=== PATIENT | female | born 1985 | race Caucasian/White ===

== ENCOUNTER 2017-09-14 14:45 | Emergency (ER) | payer SELFPAY ==
[2017-09-14 14:51] VITALS: BP 123/71
[2017-09-14 17:57] LABS: APPEARANCE,URINE SLIGHTLY-CLOUDY; BILIRUBIN,URINE NEGATIVE (NEGATIVE); COLOR,URINE YELLOW; GLUCOSE, URINE NEGATIVE (NEGATIVE); KETONES,URINE NEGATIVE (NEGATIVE); LEUKOCYTE ESTERASE,URINE NEGATIVE (NEGATIVE); NITRITE,URINE POSITIVE (NEGATIVE); PROTEIN,URINE NEGATIVE (NEGATIVE); URINE SPECIFIC GRAVITY 1.024; UROBILINOGEN,URINE NEGATIVE mg/dL (<2.0)
--- NOTE | 2017-09-14 19:30 | ER Document Report ---
ED General - General Chief Complaint: Congestion Stated Complaint: CONGESTION Time Seen by Provider: 09/14/17 19:19 Notes: Patient presents with 2 weeks of upper respiratory congestion nonproductive cough with intermittent epistaxis. Patient denies any recent fevers or coughing at night. She has had several bouts of nonbloody nonbilious vomiting but denies any abdominal pain chest pain or diarrhea. TRAVEL OUTSIDE OF THE [place] IN LAST 30 DAYS: No - Related Data Allergies/Adverse Reactions: No Known Allergies Allergy (Unverified 09/14/17 14:45) Past Medical History - Social History Smoking Status: Current Every Day Smoker Chew tobacco use (# tins/day): No Frequency of alcohol use: None Drug Abuse: Marijuana Family History: Reviewed & Not Pertinent Patient has suicidal ideation: No Patient has homicidal ideation: No Pulmonary Medical History: Reports: Hx Asthma Renal/ Medical History: Denies: Hx Peritoneal Dialysis Past Surgical History: Reports: Hx Appendectomy, Hx Section - x3, Hx Cholecystectomy Review of Systems - Review of Systems Constitutional: No symptoms reported EENT: See HPI, Nose congestion, Nose discharge, Sinus pressure, Sinus discharge Cardiovascular: No symptoms reported Respiratory: No symptoms reported Gastrointestinal: Vomiting Genitourinary: No symptoms reported Female Genitourinary: No symptoms reported Musculoskeletal: No symptoms reported Skin: No symptoms reported Hematologic/Lymphatic: No symptoms reported Neurological/Psychological: No symptoms reported Physical Exam - Vital signs Vitals: Temp Pulse BP Pulse Ox 98.4 F 97 123/71 94 09/14/17 14:49 09/14/17 14:49 09/14/17 14:49 09/14/17 14:49 - General General appearance: Appears well In distress: None - HEENT Head: Normocephalic, Atraumatic Eyes: Normal Pupils: PERRL Pharynx: Normal - Respiratory Respiratory status: No respiratory distress Breath sounds: Wheezing, Other - mild upper wheezing, no rales - Cardiovascular Rhythm: Regular Heart sounds: Normal auscultation Murmur: No - Abdominal Inspection: Normal Distension: No distension Bowel sounds: Normal Tenderness: Nontender Organomegaly: No organomegaly Course - Re-evaluation Re-evalutation: 09/14/17 19:31 Patient well-appearing with 2 weeks of symptoms will provide 5 day steroid Dosepak as well as fluticasone and azelastine - Vital Signs Vital signs: Temp Pulse Resp BP Pulse Ox 98.4 F 97 123/71 94 09/14/17 14:49 09/14/17 14:49 09/14/17 14:49 09/14/17 14:49 - Laboratory Laboratory results interpreted by me: 09/14/17 17:25 Urine Nitrite POSITIVE H Discharge - Discharge Clinical Impression: Upper respiratory infection Qualifiers: URI type: unspecified URI Qualified Code(s): J06.9 - Acute upper respiratory infection, unspecified Condition: Good Disposition: HOME, SELF-CARE Additional Instructions: Please take medications as directed and follow-up with her primary care physician or emergency department if symptoms are worsening or not getting better in the next 2-3 days Prescriptions: Azelastine HCl 205.5 mcg NS BID #1 bottle Fluticasone Propionate [Flonase Allergy Relief] 9.9 ml NS BID #1 bottle Prednisone 40 mg PO DAILY #10 tablet Forms: Return to Work
== END 2017-09-14 19:45 | disposition home or self-care (01) ==
LOC: EDSEX → ER 14:45
DX: J06.9 Acute upper respiratory infection, unspecified (principal); R09.81 Nasal congestion; R05 Cough; R04.0 Epistaxis; F17.200 Nicotine dependence, unspecified, uncomplicated
CPT/HCPCS: 81001; 99283

== ENCOUNTER 2018-04-23 14:57 | Emergency (ER) | payer SELFPAY ==
[2018-04-23 15:08] VITALS: BP 116/62
[2018-04-23] MEDS ORDERED: IBUPROFEN 800 MG TABLET PO ONE (15:49)
--- NOTE | 2018-04-23 15:51 | ER Document Report ---
ED Extremity Problem, Lower - General Chief Complaint: Foot Injury Stated Complaint: FOOT AND ANKLE PAIN Time Seen by Provider: 04/23/18 15:22 Mode of Arrival: Ambulatory Information source: Patient Notes: 32-year-old female presents to ED for complaint of left foot pain. She states she dropped a chair on her left foot on Wednesday. She states she has been walking and working but the foot is swollen and bruised. She states it was becoming more painful to walk supposed her bowels told her she needed to get that checked out. Patient is alert and oriented respirations regular and unlabored speaking in full sentences and walks with a even steady gait. She does have a small bruise and swelling to the lateral aspect of the top of her foot. TRAVEL OUTSIDE OF THE [place] IN LAST 30 DAYS: No - HPI Patient complains to provider of: Injury, Pain, Swelling Location: Ankle, Foot - Left Occurred: Other - And he Where: Work Onset/Duration: Persistent Quality of pain: Achy, Sharp Severity: Moderate Pain Level: 4 Context: Other - Dropped a chair on her foot Recent injury: Yes Associated symptoms: Painful ambulation Exacerbated by: Hanging down, Movement, Walking Relieved by: Elevation, Ice, Rest - Related Data Allergies/Adverse Reactions: No Known Allergies Allergy (Verified 04/23/18 15:05) Past Medical History - General Information source: Patient - Social History Smoking Status: Current Every Day Smoker Cigarette use (# per day): Yes - Half a pack a day Chew tobacco use (# tins/day): No Smoking Education Provided: Yes - 4 minutes Frequency of alcohol use: Rare Drug Abuse: Marijuana Occupation: Supervisor [employer] Lives with: Family Family History: Reviewed & Not Pertinent Patient has suicidal ideation: No Patient has homicidal ideation: No - Past Medical History Cardiac Medical History: Reports: None Pulmonary Medical History: Reports: Hx Asthma EENT Medical History: Reports: None Neurological Medical History: Reports: None Endocrine Medical History: Reports: None Renal/ Medical History: Reports: None Malignancy Medical History: Reports: None GI Medical History: Reports: None Musculoskeletal Medical History: Reports Hx Musculoskeletal Trauma Skin Medical History: Reports None Psychiatric Medical History: Reports: Hx Depression Traumatic Medical History: Reports: None Infectious Medical History: Reports: None Past Surgical History: Reports: Hx Appendectomy, Hx Section - x3, Hx Cholecystectomy Review of Systems - Review of Systems Constitutional: No symptoms reported EENT: No symptoms reported Cardiovascular: No symptoms reported Respiratory: No symptoms reported Gastrointestinal: No symptoms reported Genitourinary: No symptoms reported Female Genitourinary: No symptoms reported Musculoskeletal: Other - Pain, swelling, and bruising to the left foot and ankle Skin: No symptoms reported Hematologic/Lymphatic: No symptoms reported Neurological/Psychological: No symptoms reported -: Yes All other systems reviewed and negative Physical Exam - Vital signs Vitals: Temp Pulse Resp BP Pulse Ox 98.6 F 98 16 116/62 100 04/23/18 15:07 04/23/18 15:07 04/23/18 15:07 04/23/18 15:07 04/23/18 15:07 Interpretation: Normal - General General appearance: Appears well, Alert - HEENT Head: Normocephalic, Atraumatic Eyes: Normal Pupils: PERRL - Respiratory Respiratory status: No respiratory distress Chest status: Nontender Breath sounds: Normal Chest palpation: Normal - Cardiovascular Rhythm: Regular Heart sounds: Normal auscultation Murmur: No - Abdominal Inspection: Normal Distension: No distension Bowel sounds: Normal Tenderness: Nontender Organomegaly: No organomegaly - Back Back: Normal, Nontender - Extremities General upper extremity: Normal inspection, Nontender, Normal color, Normal ROM , Normal temperature General lower extremity: Normal ROM, Normal temperature, Normal weight bearing. No: Pietro's sign Ankle: Tender, Ecchymosis, Edema. No: Unable to bear weight Foot: Tender, Ecchymosis, Edema, Metatarsal compress. pain, No evidence of FB. No: Tender 5th metatarsal, Unable to bear weight - Neurological Neuro grossly intact: Yes Cognition: Normal Orientation: AAOx4 Humble Coma Scale Eye Opening: Spontaneous Montesano Coma Scale Verbal: Oriented Humble Coma Scale Motor: Obeys Commands Humble Coma Scale Total: 15 Speech: Normal Motor strength normal: LUE, RUE, LLE, RLE Sensory: Normal - Psychological Associated symptoms: Normal affect, Normal mood - Skin Skin Temperature: Warm Skin Moisture: Dry Skin Color: Normal Course - Re-evaluation Re-evalutation: 04/23/18 22:16 Chest x-ray with patient. Patient was given written report of x-ray and instructions for elevation ice ibuprofen and Tylenol. Patient was discharged home after she verbalized understanding of instructions and treatment plan. - Vital Signs Vital signs: Temp Pulse Resp BP Pulse Ox 98.6 F 98 16 116/62 100 04/23/18 15:07 04/23/18 15:07 04/23/18 15:07 04/23/18 15:07 04/23/18 15:07 - Diagnostic Test Radiology reviewed: Image reviewed, Reports reviewed Discharge - Discharge Clinical Impression: Contusion of left foot Qualifiers: Encounter type: initial encounter Qualified Code(s): S90.32XA - Contusion of left foot, initial encounter Condition: Stable Disposition: HOME, SELF-CARE Instructions: Family Physicians / Practices Additional Instructions: CONTUSION: Your injury has resulted in a contusion -- a crushing of the deep tissues. No injury to important structures was detected during the physician's exam. Contusions vary in the amount of pain they cause, and in the length of time required for healing. Typically, the area will become bruised, and will remain painful to touch for two or three weeks. However, most patients are back to working and playing within a few days. After the initial period of rest and cold-packs, your symptoms (together with the doctor's recommendations) will determine how rapidly you can get back to full activity. Usually this means "do what feels okay, but don't do things that hurt." If re-examination was recommended, it's important to follow up as instructed. Call the doctor or return any time if pain increases, if swelling becomes severe, if you develop numbness or weakness in an injured extremity, or if any other alarming symptoms occur. USE OF TYLENOL (ACETAMINOPHEN): Acetaminophen may be taken for pain relief or fever control. It's much safer than aspirin, offering a wider range of "safe" dosages. It is safe during . Some brand names are Tylenol, Panadol, Datril, Anacin 3, Tempra, and Liquiprin. Acetaminophen can be repeated every four hours. The following are maximum recommended dosages: WEIGHT Dose Drops Elixir Chewable( 80mg) (LBS.) drprs=droppers tsp=teaspoon 6 40 mg 0.4 ml (1/2) 6-11 80 mg 0.8 ml (full) tsp 1 tab 12-16 120 mg 1 1/2 drprs 3/4 tsp 1 1/2 tabs 17-23 160 mg 2 drprs 1 tsp 2 tabs 24-30 240 mg 3 drprs 1 1/2 tsp 3 tabs 30-35 320 mg 2 tsp 4 tabs 36-41 360 mg 2 1/4 tsp 4 1/2 tabs 42-47 400 mg 2 1/2 tsp 5 tabs 48-53 480 mg 3 tsp 6 tabs 54-59 520 mg 3 1/4 tsp 6 1/2 tabs 60-64 560 mg 3 1/2 tsp 7 tabs 65-70 600 mg 3 3/4 tsp 7 1/2 tabs 71-76 640 mg 4 tsp 8 tabs 77-82 720 mg 4 1/2 tsp 9 tabs 83-88 800 mg 5 tsp 10 tabs >89 pounds or adults 650 mg to 900 mg Acetaminophen can be repeated every four hours. Maximum dose not to exceed 4000 mg a day. These maximum recommended dosages are slightly higher than the dosages written on the product container, but these dosages are very safe and below the toxic dosage for acetaminophen. ICE & ELEVATION: Apply ice packs frequently against the painful area. Many different schedules are recommended, such as "20 minutes on, 20 minutes off" or "one hour ice, two hours rest." If you need to work, you may need to go longer between ice treatments. You should plan to have the area ice packed AT LEAST one- fourth of the time. The ice should be applied over the wrap, tape, or splint, or over a layer of cloth -- not directly against the skin. Some ice bags have a built-in cloth and can be put directly on the skin. Your injured part should be elevated as much as possible over the next 48 hours. Try to keep the injury above the level of the heart. Avoid use of the injured area. Elevation and rest will decrease the swelling. USE OF [id number]-[id number] IBUPROFEN: Ibuprofen (Advil, Nuprin, Medipren, Motrin IB) is a medication for fever and pain control. In addition, it has anti- inflammatory effects which may be beneficial, especially in the treatment of injuries. It's best to take ibuprofen with food. Persons with ulcer disease or allergy to aspirin should notify their physician of this before taking ibuprofen. Ibuprofen can be given every four to six hours, for a total of four doses daily. Age Pain or fever dose Antiinflammatory dose 6-8 yr 200 mg (1 tab) 200 mg (1 tab) 9-11 yr 200 mg (1 tab) 200-400 mg (1-2 tab) 11-14 yr 200-400 mg (1-2 tab) 400 mg (2 tab) 15-adult 400 mg (2 tab) 600 mg (3 tab) FOLLOW-UP CARE: If you have been referred to a physician for follow-up care, call the physician s office for an appointment as you were instructed or within the next two days. If you experience worsening or a significant change in your symptoms, notify the physician immediately or return to the Emergency Department at any time for re-evaluation. Forms: Return to Work Referrals: DOMINGUEZ BREWER MD [ACTIVE STAFF] - Follow up as needed SHIRA LAKE DPM [ACTIVE STAFF] - Follow up as needed
--- NOTE | 2018-04-23 16:24 | RADIOLOGY REPORT (SQ) ---
EXAM DESCRIPTION: ANKLE LEFT COMPLETE; FOOT LEFT COMPLETE COMPLETED DATE/TIME: 04/23/2018 4:14 pm REASON FOR STUDY: contusion, pain and injury COMPARISON: None. NUMBER OF VIEWS: Three views left ankle. Three views left foot. LIMITATIONS: None. FINDINGS: Ankle: No bone, joint or soft tissue abnormality. Three views left foot: No bone, joint or soft tissue abnormality. OTHER: No other significant finding. IMPRESSION: No radiographic abnormality of the left foot or ankle. TECHNICAL DOCUMENTATION: JOB ID: [id number] Reading location - IP/workstation name: [email or web address]
--- NOTE | 2018-04-23 16:24 | RADIOLOGY REPORT (SQ) ---
EXAM DESCRIPTION: ANKLE LEFT COMPLETE; FOOT LEFT COMPLETE COMPLETED DATE/TIME: 04/23/2018 4:14 pm REASON FOR STUDY: contusion, pain and injury COMPARISON: None. NUMBER OF VIEWS: Three views left ankle. Three views left foot. LIMITATIONS: None. FINDINGS: Ankle: No bone, joint or soft tissue abnormality. Three views left foot: No bone, joint or soft tissue abnormality. OTHER: No other significant finding. IMPRESSION: No radiographic abnormality of the left foot or ankle. TECHNICAL DOCUMENTATION: JOB ID: [id number] Reading location - IP/workstation name: [email or web address]
== END 2018-04-23 17:15 | disposition home or self-care (01) ==
LOC: ER 14:57
DX: S90.32XA Contusion of left foot, initial encounter (principal); W22.8XXA Striking against or struck by other objects, initial encounter
CPT/HCPCS: 99283; 99406

== ENCOUNTER 2018-05-30 18:33 | Emergency (ER) | payer OTHER ==
[2018-05-30] MEDS ORDERED: HYDROCODONE/ACETAMINOPHEN 5-325 MG TABLET PO ONE (19:19)
--- NOTE | 2018-05-30 19:24 | ER Document Report ---
HPI - HPI Patient complains to provider of: Fall Onset: Other - Days ago Onset/Duration: Persistent Quality of pain: Achy Pain Level: 3 Context: Patient states she was at work and slipped on a wet surface falling back. Patient states she attempted to catch herself with her hands. Patient states she initially had bilateral wrist pain right lateral rib pain and right knee pain. Patient states that her right wrist has persisted and giving her pain. Patient denies any difficulty breathing. Patient denies any head injury or loss of consciousness. Associated Symptoms: Other - Bilateral wrist, right rib, right knee pain Exacerbated by: Movement Relieved by: Denies Similar symptoms previously: No Recently seen / treated by doctor: No - ROS ROS below otherwise negative: Yes Systems Reviewed and Negative: Yes All other systems reviewed and negative - NEURO Neurology: DENIES: Headache, Weakness - GASTROINTESTINAL Gastrointestinal: DENIES: Nausea - MUSCULOSKELETAL Musculoskeletal: REPORTS: Extremity pain - Right knee, bilateral wrist Notes: Right lateral rib - DERM Skin Color: Normal Skin Problems: None Past Medical History - General Information source: Patient - Social History Smoking Status: Current Every Day Smoker Smoking Education Provided: Yes Frequency of alcohol use: None Drug Abuse: Marijuana Occupation: Baseball Coach Family History: Reviewed & Not Pertinent Pulmonary Medical History: Reports: Hx Asthma Renal/ Medical History: Denies: Hx Peritoneal Dialysis Musculoskeletal Medical History: Reports Hx Musculoskeletal Trauma Psychiatric Medical History: Reports: Hx Depression Past Surgical History: Reports: Hx Appendectomy, Hx Section - x3, Hx Cholecystectomy Vertical Provider Document - CONSTITUTIONAL Agree With Documented VS: Yes Exam Limitations: No Limitations General Appearance: WD/WN, No Apparent Distress - INFECTION CONTROL TRAVEL OUTSIDE OF THE [place] IN LAST 30 DAYS: No - HEENT HEENT: Atraumatic, Normocephalic - NECK Neck: Normal Inspection, Supple - RESPIRATORY Respiratory: Breath Sounds Normal, No Respiratory Distress. negative: Chest Non -Tender - Right posterior thoracic chest wall tenderness, no crepitus, no subcutaneous emphysema, no ecchymosis - CARDIOVASCULAR Cardiovascular: Regular Rate, Regular Rhythm - GI/ABDOMEN Gastrointestinal: Abdomen Soft, Abdomen Non-Tender, No Organomegaly - BACK Back: Abnormal Inspection - Right posterior costal tenderness near ribs 5 through 9 area - MUSCULOSKELETAL/EXTREMETIES Musculoskeletal/Extremeties: MAEW, FROM, Tender - Right knee tenderness to popliteal area, no joint effusion, no laxity with varus or valgus maneuvers. Right wrist and hand tenderness with ecchymosis to the volar aspect of right wrist, no deformity tenderness increases with range of motion, Edema - Right wrist, Eccymosis - Right wrist - NEURO Level of Consciousness: Awake, Alert, Appropriate Motor/Sensory: No Motor Deficit - DERM Integumentary: Warm, Dry, No Rash Course - Re-evaluation Re-evalutation: 05/30/18 20:35 Patient refused any rib x-rays or knee x-ray. Patient states that her main concern is her wrist and that the pain to the rib and knee area has been gradually improving. - Vital Signs Vital signs: Temp Pulse Resp BP Pulse Ox 98.3 F 92 16 122/76 99 05/30/18 18:50 05/30/18 18:50 05/30/18 18:50 05/30/18 18:50 05/30/18 18:50 - Diagnostic Test Radiology reviewed: Image reviewed, Reports reviewed Procedures - Immobilization Right Wrist Pre-Proc Neuro Vasc Exam: Normal Immobilizer type: Cock-up Performed by: PCT Post-Proc Neuro Vasc Exam: Normal Alignment checked and good: Yes Discharge - Discharge Clinical Impression: Rib pain on right side Fall Qualifiers: Encounter type: initial encounter Qualified Code(s): W19.XXXA - Unspecified fall, initial encounter Right wrist sprain Qualifiers: Encounter type: initial encounter Qualified Code(s): S63.501A - Unspecified sprain of right wrist, initial encounter Knee sprain Qualifiers: Encounter type: initial encounter Involved ligament of knee: unspecified ligament Laterality: right Qualified Code(s): S83.91XA - Sprain of unspecified site of right knee, initial encounter Condition: Stable Disposition: HOME, SELF-CARE Instructions: Chest Wall Pain ([facility]), Ice & Elevation ([facility]), Sprained Knee ([facility]) , Wrist Sprain ([facility]), Temporary Splint ([facility]) Additional Instructions: Return immediately for any new or worsening symptoms Followup with your primary care provider, call tomorrow to make a followup appointment Prescriptions: Naproxen [Naprosyn 250 Nmg Tablet] 1 tab PO BID #14 tablet Forms: Return to Work Referrals: [facility] [Provider Group] - Follow up as needed
--- NOTE | 2018-05-30 20:39 | RADIOLOGY REPORT (SQ) ---
EXAM DESCRIPTION: HAND RIGHT 3 VIEWS COMPLETED DATE/TIME: 05/30/2018 8:20 pm REASON FOR STUDY: fall, r hand/wrist pain COMPARISON: None. EXAM PARAMETERS: NUMBER OF VIEWS: Three views. TECHNIQUE: AP, lateral and oblique radiographic images acquired of the right hand. LIMITATIONS: None. FINDINGS: MINERALIZATION: Normal. BONES: No acute fracture or dislocation. No worrisome bone lesions. JOINTS: No effusions. SOFT TISSUES: No soft tissue swelling. No foreign body. OTHER: No other significant finding. IMPRESSION: NEGATIVE STUDY OF THE RIGHT HAND. NO RADIOGRAPHIC EVIDENCE OF ACUTE INJURY. TECHNICAL DOCUMENTATION: JOB ID: [id number] [employer]- All Rights Reserved Reading location - IP/workstation name: [email or web address]
[2018-05-30] MEDS ORDERED: HYDROCODONE/ACETAMINOPHEN 5-325 MG (6 TAB/ER DISP) PO PRN (20:46)
[2018-05-30 21:00] VITALS: BP 118/69
== END 2018-05-30 21:05 | disposition home or self-care (01) ==
LOC: ER 18:33
DX: S63.501A Unspecified sprain of right wrist, initial encounter (principal); S83.91XA Sprain of unspecified site of right knee, initial encounter; R07.81 Pleurodynia; M25.531 Pain in right wrist; M25.532 Pain in left wrist; M25.561 Pain in right knee; W01.0XXA Fall on same level from slipping, tripping and stumbling without subsequent striking against object, initial encounter; Y99.0 Civilian activity done for income or pay; F17.200 Nicotine dependence, unspecified, uncomplicated; J45.909 Unspecified asthma, uncomplicated
CPT/HCPCS: 99283; 73130; L3908

== ENCOUNTER 2018-10-06 10:20 | Emergency (ER) | payer SELFPAY ==
[2018-10-06] MEDS ORDERED: NORMAL SALINE 1000 ML 1,000 ML IV ONE (10:40)
[2018-10-06] MEDS ORDERED: HALOPERIDOL LACTATE INJ 5 MG/1 ML VIAL IV ONE (10:43)
[2018-10-06] MEDS ORDERED: DIPHENHYDRAMINE HCL 50 MG/ML VIAL IV ONE (10:43)
--- NOTE | 2018-10-06 10:45 | EKG REPORT ---
SEVERITY:- NORMAL ECG - SINUS RHYTHM : Confirmed by: Terra Wilks MD 06-Oct-2018 10:44:50
[2018-10-06 10:53] LABS: HEMATOCRIT 43.2 % (36.0-47.0); HEMOGLOBIN 14.9 g/dL (12.0-15.5); MEAN CORPUSCULAR HEMOGLOBIN 29.6 pg (27.0-33.4); MEAN CORPUSCULAR HGB CONC 34.5 g/dL (32.0-36.0); MEAN CORPUSCULAR VOLUME 86 fl (80-97); PLATELET COUNT 311 10^3/uL (150-450); RED BLOOD COUNT 5.04 10^6/uL (3.72-5.28); RED CELL DISTRIBUTION WIDTH 13.2 % (11.5-14.0); WHITE BLOOD COUNT 8.6 10^3/uL (4.0-10.5)
[2018-10-06 11:12] LABS: ALANINE AMINOTRANSFERASE 22 U/L (9-52); ALBUMIN 4.8 g/dL (3.5-5.0); ALKALINE PHOSPHATASE 89 U/L (38-126); ANION GAP 11 (5-19); ASPARTATE AMINO TRANSFERASE 18 U/L (14-36); BILIRUBIN,DIRECT 0.3 mg/dL (0.0-0.4); BILIRUBIN,TOTAL 0.4 mg/dL (0.2-1.3); BLOOD UREA NITROGEN 14 mg/dL (7-20); CALCIUM 10.2 mg/dL (8.4-10.2); CARBON DIOXIDE 23 mmol/L (22-30); CHLORIDE 107 mmol/L (98-107); GLUCOSE 93 mg/dL (75-110); POTASSIUM 3.9 mmol/L (3.6-5.0); SODIUM 141.2 mmol/L (137-145); TOTAL PROTEIN 8.1 g/dL (6.3-8.2)
--- NOTE | 2018-10-06 11:15 | RADIOLOGY REPORT (SQ) ---
EXAM DESCRIPTION: CHEST SINGLE VIEW COMPLETED DATE/TIME: 10/06/2018 11:03 am REASON FOR STUDY: sob COMPARISON: None. EXAM PARAMETERS: NUMBER OF VIEWS: One view. TECHNIQUE: Single frontal radiographic view of the chest acquired. RADIATION DOSE: NA LIMITATIONS: None. FINDINGS: LUNGS AND PLEURA: No opacities, masses or pneumothorax. No pleural effusion. MEDIASTINUM AND HILAR STRUCTURES: No masses. Contour normal. HEART AND VASCULAR STRUCTURES: Heart normal in size. Normal vasculature. BONES: No acute findings. HARDWARE: None in the chest. OTHER: No other significant finding. IMPRESSION: NO ACUTE RADIOGRAPHIC FINDING IN THE CHEST. TECHNICAL DOCUMENTATION: JOB ID: [id number] [employer]- All Rights Reserved Reading location - IP/workstation name: [email or web address]
[2018-10-06 11:25] LABS: ABSOLUTE LYMPHOCYTES# (MANUAL) 2.6 10^3/uL (0.5-4.7); ABSOLUTE MONOCYTES # (MANUAL) 0.7 10^3/uL (0.1-1.4); ABSOLUTE NEUTROPHILS# (MANUAL) 5.1 10^3/uL (1.7-8.2); BASOPHILS % (MANUAL) 0 % (0-2); EOSINOPHILS % (MANUAL) 3 % (0-6); LYMPHOCYTES % (MANUAL) 25 % (13-45); MONOCYTES % (MANUAL) 8 % (3-13); SEGMENTED NEUTROPHILS % (MAN) 59 % (42-78); TOTAL CELLS COUNTED 100
[2018-10-06 11:26] LABS: ANISOCYTOSIS SLIGHT; HYPERSEGMENTED NEUTROPHILS PRESENT; PLATELET COMMENT ADEQUATE
[2018-10-06 11:30] LABS: ACETAMINOPHEN < 10 ug/mL (10-30); ALCOHOL < 10 mg/dL (NONE DETECTED); SALICYLATE < 1.0 mg/dL (2.0-20.0)
[2018-10-06 11:53] LABS: VENOUS BLOOD BASE EXCESS -2.4 mmol/L; VENOUS BLOOD HCO3 22.7 mmol/L (20-32); VENOUS BLOOD PCO2 40.7 mmHg (35-63); VENOUS BLOOD PH 7.37 (7.30-7.42)
--- NOTE | 2018-10-06 12:37 | ER Document Report ---
ED General - General Chief Complaint: Overdose Stated Complaint: POSSIBLE OVERDOSE Time Seen by Provider: 10/06/18 10:37 TRAVEL OUTSIDE OF THE [place] IN LAST 30 DAYS: No - HPI Patient complains to provider of: Methamphetamine use difficulty breathing Notes: Patient states approximate 1:00 to 2:00 early this morning due to increased stress in her life she did inject methamphetamines into the left upper arm almost at the coracoid process region. Patient states that she is very sure that she was in the vein patient now is experiencing significant shortness of breath patient is hyperventilating upon my evaluation complaining of numbness in the face and numbness in the hands and feet. Denies any chest pain abdominal pain nausea vomiting fevers chills. Denies any SI or HI patient does have a history of drug abuse in the past - Related Data Allergies/Adverse Reactions: No Known Allergies Allergy (Verified 10/06/18 10:20) Past Medical History - Social History Smoking Status: Current Every Day Smoker Chew tobacco use (# tins/day): No Frequency of alcohol use: Rare Drug Abuse: Marijuana, Methamphetamine Family History: Reviewed & Not Pertinent Patient has suicidal ideation: No Patient has homicidal ideation: No Pulmonary Medical History: Reports: Hx Asthma Renal/ Medical History: Denies: Hx Peritoneal Dialysis Musculoskeletal Medical History: Reports Hx Musculoskeletal Trauma Psychiatric Medical History: Reports: Hx Depression Past Surgical History: Reports: Hx Appendectomy, Hx Section - x3, Hx Cholecystectomy Review of Systems - Review of Systems Constitutional: No symptoms reported EENT: No symptoms reported Cardiovascular: No symptoms reported Respiratory: No symptoms reported Gastrointestinal: No symptoms reported Genitourinary: No symptoms reported Female Genitourinary: No symptoms reported Musculoskeletal: No symptoms reported Skin: No symptoms reported Hematologic/Lymphatic: No symptoms reported Neurological/Psychological: Other - Numbness and tingling difficulty breathing -: Yes All other systems reviewed and negative Physical Exam - Vital signs Vitals: Temp Pulse Resp BP Pulse Ox 97.3 F 73 22 H 120/76 99 10/06/18 10:24 10/06/18 10:24 10/06/18 10:24 10/06/18 10:24 10/06/18 10:24 Interpretation: Tachypneic - General General appearance: Appears well, Alert - HEENT Head: Normocephalic, Atraumatic Eyes: Normal Pupils: PERRL - Respiratory Respiratory status: Tachypnea Chest status: Nontender Breath sounds: Normal Chest palpation: Normal - Cardiovascular Rhythm: Regular Heart sounds: Normal auscultation Murmur: No - Abdominal Inspection: Normal Distension: No distension Bowel sounds: Normal Tenderness: Nontender Organomegaly: No organomegaly - Back Back: Normal, Nontender - Extremities General upper extremity: Normal inspection, Nontender, Normal color, Normal ROM, Normal temperature General lower extremity: Normal inspection, Nontender, Normal color, Normal ROM, Normal temperature, Normal weight bearing. No: Pietro's sign - Neurological Neuro grossly intact: Yes Cognition: Normal Orientation: AAOx4 Vicco Coma Scale Eye Opening: Spontaneous Humble Coma Scale Verbal: Oriented Humble Coma Scale Motor: Obeys Commands Vicco Coma Scale Total: 15 Speech: Normal Motor strength normal: LUE, RUE, LLE, RLE Sensory: Normal - Psychological Associated symptoms: Normal affect, Normal mood - Skin Skin Temperature: Warm Skin Moisture: Dry Skin Color: Normal Course - Re-evaluation Re-evalutation: 10/06/18 14:58 Patient was hyperventilating upon my evaluation of numbness and tingling. Laboratory studies not show any critical pathology. Patient was given Benadryl and Haldol reevaluated sleeping feeling much better patient was educated on a bstaining from illicit drug abuse. Patient was given resources for substance abuse clinics. Patient will be discharged home - Vital Signs Vital signs: Temp Pulse Resp BP Pulse Ox 97.3 F 73 20 108/71 100 10/06/18 10:24 10/06/18 10:24 10/06/18 14:01 10/06/18 14:00 10/06/18 14:01 - Laboratory Result Diagrams: 10/06/18 10:34 10/06/18 10:34 Laboratory results interpreted by me: 10/06/18 10/06/18 10:34 12:20 Urine Ketones 20 H Salicylates < 1.0 L Acetaminophen < 10 L Discharge - Discharge Clinical Impression: Methamphetamine use, Anxiety Instructions: Anxiety ([facility]) Additional Instructions: Your laboratory studies not show any critical pathology at this time I would recommend to abstain from any methamphetamine use or any other illicit drug abuse such as cocaine. Also recommend to stop smoking from a general health standpoint. He may take the Vistaril as needed for any underlying anxiety she may have please make sure this may make you drowsy return to the ER for any other complications or issues. Prescriptions: Hydroxyzine Pamoate [Vistaril 25 mg Capsule] 25 mg PO QHS #14 capsule Forms: Return to Work
[2018-10-06 12:41] LABS: AMORPHOUS SEDIMENT,URINE TRACE /HPF; APPEARANCE,URINE SLIGHTLY-CLOUDY; BILIRUBIN,URINE NEGATIVE (NEGATIVE); COLOR,URINE YELLOW; GLUCOSE, URINE NEGATIVE (NEGATIVE); KETONES,URINE 20 mg/dL (NEGATIVE); LEUKOCYTE ESTERASE,URINE NEGATIVE (NEGATIVE); NITRITE,URINE NEGATIVE (NEGATIVE); PROTEIN,URINE NEGATIVE (NEGATIVE); URINE SPECIFIC GRAVITY 1.016; UROBILINOGEN,URINE NEGATIVE mg/dL (<2.0)
[2018-10-06 12:53] LABS: URINE BARBITURATES SCREEN NEGATIVE; URINE BENZODIAZEPINES SCREEN NEGATIVE; URINE COCAINE SCREEN NEGATIVE; URINE MARIJUANA (THC) SCREEN UNCONFIRMED POSITIVE; URINE METHADONE SCREEN NEGATIVE; URINE PHENCYCLIDINE SCREEN NEGATIVE
[2018-10-06 15:39] VITALS: BP 102/68
== END 2018-10-06 16:17 | disposition home or self-care (01) ==
LOC: ER 10:20
DX: F15.10 Other stimulant abuse, uncomplicated (principal); F12.10 Cannabis abuse, uncomplicated; F41.9 Anxiety disorder, unspecified; R06.4 Hyperventilation; R20.0 Anesthesia of skin; R20.2 Paresthesia of skin; J45.909 Unspecified asthma, uncomplicated; F17.200 Nicotine dependence, unspecified, uncomplicated
CPT/HCPCS: 93005; 99284; 96361; 96374; 96375; 36415; 80307 ×4; 84702; 83735; 84703; 85025; 80053; 81001; 82803; 71045; 93010; J1200; J1630; J7030

== ENCOUNTER → 2019-02-22 | Outpatient (CLI) | payer SELFPAY ==
--- NOTE | 2019-02-22 13:58 | RADIOLOGY REPORT (SQ) ---
EXAM DESCRIPTION: U/S OB TRANSVAGINAL W/O DOP COMPLETED DATE/TIME: 02/22/2019 1:41 pm REASON FOR STUDY: ENCTR FOR SUPERVISION OF OTHER NORMAL , 1ST TRIMESTER (Z34.81) Z34.81 EN COUNTER FOR SUPRVSN OF NORMAL , FIRST TRIM COMPARISON: None. TECHNIQUE: Transvaginal static and realtime grayscale images acquired of the pelvis. Additional farhad cted spectral and color Doppler images recorded. All images stored on PACs. CG: Not available. CLINICAL DATES: LMP 01/01/2019. 7 weeks 3 days. LIMITATIONS: None. FINDINGS: FETUS: Single Living intrauterine . ULTRASOUND EGA: 8 weeks 0 days ULTRASOUND POORNIMA: 10/04/2019 EFW: Not applicable less than 20 weeks. CRL: 1.57 cm. FHR: heart motion is not seen. SURVEY: Too early to assess. AMNIOTIC FLUID: Adequate amount. PLACENTA: Not yet developed due to early gestation. SUBCHORIONIC BLEED: No SIZE OF BLEED: Not applicable. UTERUS: No masses. No anomalies. CERVICAL LENGTH: 3.6 cm. Closed. RIGHT ADNEXA: Normal ovary with normal vascular flow. 2.8 x 2.3 x 2.3 cm. No adnexal free fluid. No adnexal masses. LEFT ADNEXA: Normal ovary with normal vascular flow. 3.5 x 3.2 x 2.1 cm. 18 mm corpus luteum. No adnexal free fluid. No adnexal masses. FREE FLUID: None. OTHER: No other significant finding. IMPRESSION: There is an intrauterine gestation of 8 weeks 0 days. However, no heart motion is seen. Cannot exclude demise. Follow-up as clinically indicated. Trimester of : First - 0 to 13 weeks. TECHNICAL DOCUMENTATION: JOB ID: [id number] [employer]- All Rights Reserved rev-01/07 Reading location - IP/workstation name: [email or web address]
== END ==
LOC: RAD 12:40
PROVIDERS: ATTEND Midwife
DX: Z34.81 Encounter for supervision of other normal pregnancy, first trimester (principal); Z3A.01 Less than 8 weeks gestation of pregnancy
CPT/HCPCS: 76817

== ENCOUNTER 2019-03-09 15:53 | Emergency (ER) | payer MEDICAID ==
[2019-03-09] MEDS ORDERED: MORPHINE SULFATE 10 MG/ML INJ IV ONE (16:08)
[2019-03-09] MEDS ORDERED: NORMAL SALINE 1000 ML 1,000 ML IV ONE (16:08)
[2019-03-09] MEDS ORDERED: ONDANSETRON 4 MG TAB.RAPDIS PO ONE (16:08)
--- NOTE | 2019-03-09 16:11 | ER Document Report ---
ED Medical Screen (RME) - General Chief Complaint: Vag Bleeding, +preg <12wks Stated Complaint: VAGINAL BLEEDING,ABDOMINAL PAIN Time Seen by Provider: 03/09/19 16:03 Primary Care Provider: TIFF MORLEY CNM [Primary Care Provider] - Follow up as needed TRAVEL OUTSIDE OF THE [place] IN LAST 30 DAYS: No - HPI Notes: 03/09/19 16:09 Patient is a 33-year-old female who is approximately 8 weeks with demise and on Misopristol for miscarriage presents c/o cramping and pain for the last 6 hours after starting the medication. Patient states that she has had bleeding for the last 2 days. She has associated nausea. She is still able to urinate and have bowel movements. Denies FORREST, fever, neck pain, URI, CP, SOB, dysuria, back pain, or rash. I have treated and performed a rapid initial assessment of this patient. A comprehensive ED assessment and evaluation of the patient, analysis of test results and completion of medical decision making process will be conducted by additional ED providers. PHYSICAL EXAMINATION: GENERAL: Well-appearing, well-nourished and in no acute distress. A&Ox4. Answers questions appropriately. LUNGS: Breath sounds clear to auscultation bilaterally and equal. No wheezes rales or rhonchi. HEART: Regular rate and rhythm without murmurs, rubs, gallops. ABDOMEN: Soft, nondistended abdomen. No guarding, no rebound. Normal bowel sounds present. No CVA tenderness bilaterally. + lower pelv tenderness (cannot elicit thorough abd exam w/o bed, however). - Related Data Allergies/Adverse Reactions: No Known Allergies Allergy (Verified 03/09/19 15:56) Past Medical History Pulmonary Medical History: Reports: Hx Asthma Renal/ Medical History: Denies: Hx Peritoneal Dialysis Musculoskeltal Medical History: Reports Hx Musculoskeletal Trauma Psychiatric Medical History: Reports: Hx Depression Past Surgical History: Reports: Hx Appendectomy, Hx Section - x3, Hx Cholecystectomy Doctor's Discharge - Discharge Referrals: TIFF MORLEY CNM [Primary Care Provider] - Follow up as needed
[2019-03-09 16:20] VITALS: BP 91/70
[2019-03-09] MEDS ORDERED: PROMETHAZINE HCL INJ 25 MG/1 ML VIAL IM ONE (16:44)
--- NOTE | 2019-03-09 16:59 | ER Document Report ---
HPI - HPI Time Seen by Provider: 03/09/19 16:03 Pain Level: 5 Notes: Patient is a 33-year-old female who is approximately 8 weeks with demise and on Misopristol for miscarriage presents c/o cramping and pain for the last 6 hours after starting the medication. Patient states that she has had bleeding for the last 2 days. She has associated nausea. She is still able to urinate and have bowel movements. Denies FORREST, fever, neck pain, URI, CP, SOB, dysuria, back pain, or rash. - ROS Systems Reviewed and Negative: Yes All other systems reviewed and negative - REPRODUCTIVE Reproductive: REPORTS: : - DERM Skin Color: Normal Past Medical History - Social History Smoking Status: Unknown if Ever Smoked Family History: Reviewed & Not Pertinent Patient has suicidal ideation: No Patient has homicidal ideation: No Pulmonary Medical History: Reports: Hx Asthma Renal/ Medical History: Denies: Hx Peritoneal Dialysis Musculoskeletal Medical History: Reports Hx Musculoskeletal Trauma Psychiatric Medical History: Reports: Hx Depression Past Surgical History: Reports: Hx Appendectomy, Hx Section - x3, Hx Cholecystectomy Vertical Provider Document - CONSTITUTIONAL Agree With Documented VS: Yes Notes: PHYSICAL EXAMINATION: GENERAL: Well-appearing, well-nourished and in no acute distress. LUNGS: Breath sounds clear to auscultation bilaterally and equal. No wheezes rales or rhonchi. HEART: Regular rate and rhythm without murmurs, rubs, gallops. ABDOMEN: Soft, nondistended abdomen. No guarding, no rebound. Normal bowel sounds present. No CVA tenderness bilaterally. + mild lower pelv tenderness. Musculoskeletal: FROM to passive/active. Strength 5+/5. Extremities: No cyanosis, clubbing, or edema b/l. Peripheral pulses 2+. Capillary refill less than 3 seconds. NEUROLOGICAL: Normal speech, normal gait. PSYCH: Normal mood, normal affect. SKIN: Warm, Dry, normal turgor, no rashes or lesions noted. - INFECTION CONTROL TRAVEL OUTSIDE OF THE [place] IN LAST 30 DAYS: No Course - Re-evaluation Re-evalutation: 03/09/19 16:56 Patient has requested to go home to lay down the bed she has been continuing to have pelvic cramping, nausea, and vomiting. Because of this, I did speak with [employer] Dr. Soler who states that she can go home and this is all normal until she miscarries. No further work-up or exam warranted. Patient is an afebrile, well-hydrated, 33-year-old female who presents actively trying to miscarry as she is on misopristol medication by OBGYN. Vitals are acceptable without significant tachycardia, tachypnea, or hypoxia. PE is otherwise unremarkable patient is nontoxic-appearing. Patient has been given nausea medicine here in the ED. As per [facility], no further work-up or exam warranted at this time. She is cleared to go home and is expected to have pain and cramping until she miscarries per OBGYN. Recheck/speak with your [employer] this week. Return to the ED with any other worsening/concerning symptoms. Patient is in agreement. - Vital Signs Vital signs: Temp Pulse Resp BP Pulse Ox 97.4 F 61 18 91/70 L 100 03/09/19 16:19 03/09/19 16:19 03/09/19 16:19 03/09/19 16:19 03/09/19 16:19 Discharge - Discharge Clinical Impression: Miscarriage, Pelvic cramping Condition: Stable Disposition: HOME, SELF-CARE Additional Instructions: Maintain fluid intake Proper hygienic technique Keep the skin clean Tylenol/ibuprofen as needed Contact your [facility] [facility] for further evaluation and management Return to the ED with any development of FORREST/fever, trouble with vision, eye redness, worsening pain, urethral discharge, urinary retention, blood in the urine, flank pain, abdominal pain, n/v, Chest Pain, shortness of breath, joint pains, trouble breathing, or any other worsening/concerning symptoms as needed otherwise. Referrals: TIFF MORLEY CNM [Primary Care Provider] - Follow up as needed [facility] [Provider Group] - Follow up as needed
== END 2019-03-09 17:16 | disposition home or self-care (01) ==
LOC: ER 15:53
DX: O03.9 Complete or unspecified spontaneous abortion without complication (principal); O26.891 Other specified pregnancy related conditions, first trimester; R10.9 Unspecified abdominal pain; R11.0 Nausea; Z3A.08 8 weeks gestation of pregnancy; O99.511 Diseases of the respiratory system complicating pregnancy, first trimester; J45.909 Unspecified asthma, uncomplicated
CPT/HCPCS: 99283; 96372; 96360; S0119; J2550; J7030

== ENCOUNTER 2019-04-08 13:15 | Emergency (ER) | payer MEDICAID ==
[2019-04-08] MEDS ORDERED: ONDANSETRON HCL INJ/PF 4 MG/2 ML SDV IV ONE ×3 (13:26→18:22)
[2019-04-08] MEDS ORDERED: KETOROLAC TROMETHAMINE INJ/PF 30 MG/1 ML SDV IV ONE (13:26)
[2019-04-08] MEDS ORDERED: NORMAL SALINE 1000 ML 1,000 ML IV ONE ×2 (13:27→17:43)
--- NOTE | 2019-04-08 13:29 | ER Document Report ---
ED Medical Screen (RME) - General Chief Complaint: Flank Pain Stated Complaint: FLANK PAIN Time Seen by Provider: 04/08/19 13:24 Primary Care Provider: TIFF MORLEY CNM [Primary Care Provider] - Follow up as needed Mode of Arrival: Ambulatory Information source: Patient Notes: Patient is a 33-year-old female presents emergency department with bilateral flank pain. Patient reports associated nausea, vomiting and diarrhea that started yesterday. She denies any dysuria. She does report vaginal bleeding, states she had a miscarriage approximately 6 weeks ago and is still bleeding from it. She denies passage of any clots. Exam: Tenderness to palpation to bilateral lumbar paraspinous areas. I have greeted and performed a rapid initial assessment of this patient. A comprehensive ED assessment and evaluation of the patient, analysis of test results and completion of the medical decision making process will be conducted by additional ED providers. I have specifically instructed the patient or family members with the patient to immediately return to any nursing staff should anything change in the patient's condition or with their chief complaint. This medical record was dictated with voice recognizing software. There may be grammatical, syntax errors that are unintended. TRAVEL OUTSIDE OF THE [place] IN LAST 30 DAYS: No - Related Data Allergies/Adverse Reactions: Latex, Natural Rubber Allergy (Verified 04/08/19 13:21) Past Medical History - Social History Frequency of alcohol use: None Drug Abuse: Marijuana Pulmonary Medical History: Reports: Hx Asthma Renal/ Medical History: Denies: Hx Peritoneal Dialysis Musculoskeltal Medical History: Reports Hx Musculoskeletal Trauma Psychiatric Medical History: Reports: Hx Depression Past Surgical History: Reports: Hx Appendectomy, Hx Section - x3, Hx Cholecystectomy Physical Exam - Vital signs Vitals: Temp Pulse Resp BP Pulse Ox 99.8 F 120 H 16 115/79 99 04/08/19 13:19 04/08/19 13:19 04/08/19 13:19 04/08/19 13:19 04/08/19 13:19 Course - Vital Signs Vital signs: Temp Pulse Resp BP Pulse Ox 99.8 F 120 H 16 115/79 99 04/08/19 13:19 04/08/19 13:19 04/08/19 13:19 04/08/19 13:19 04/08/19 13:19 Doctor's Discharge - Discharge Referrals: TIFF MORLEY CNM [Primary Care Provider] - Follow up as needed
[2019-04-08 14:14] LABS: ABSOLUTE BASOPHILS # (AUTO) 0.1 10^3/uL (0.0-0.2); ABSOLUTE LYMPHOCYTES (AUTO) 1.2 10^3/uL (0.5-4.7); ABSOLUTE MONOCYTES (AUTO) 0.9 10^3/uL (0.1-1.4); ABSOLUTE NEUT (AUTO) 15.2 10^3/uL (1.7-8.2); BASOPHILS % (AUTO) 0.3 % (0-2); HEMATOCRIT 42.5 % (36.0-47.0); HEMOGLOBIN 14.4 g/dL (12.0-15.5); LYMPHOCYTES % (AUTO) 6.7 % (13-45); MEAN CORPUSCULAR HEMOGLOBIN 28.9 pg (27.0-33.4); MEAN CORPUSCULAR VOLUME 85 fl (80-97); MONOCYTES % (AUTO) 5.1 % (3-13); PLATELET COUNT 236 10^3/uL (150-450); RED CELL DISTRIBUTION WIDTH 14.2 % (11.5-14.0); SEGMENTED NEUTROPHILS % (AUTO) 87.9 % (42-78); TOTAL CELLS COUNTED % (AUTO) 100 %; WHITE BLOOD COUNT 17.3 10^3/uL (4.0-10.5)
[2019-04-08 14:22] LABS: ALBUMIN 4.4 g/dL (3.5-5.0); ALKALINE PHOSPHATASE 102 U/L (38-126); ANION GAP 12 (5-19); ASPARTATE AMINO TRANSFERASE 32 U/L (14-36); BILIRUBIN,DIRECT 0.3 mg/dL (0.0-0.4); BILIRUBIN,TOTAL 0.7 mg/dL (0.2-1.3); BLOOD UREA NITROGEN 10 mg/dL (7-20); CALCIUM 9.6 mg/dL (8.4-10.2); CARBON DIOXIDE 24 mmol/L (22-30); CHLORIDE 101 mmol/L (98-107); GLUCOSE 130 mg/dL (75-110); POTASSIUM 4.4 mmol/L (3.6-5.0); TOTAL PROTEIN 7.8 g/dL (6.3-8.2)
[2019-04-08 14:51] LABS: APPEARANCE,URINE CLOUDY; BILIRUBIN,URINE NEGATIVE (NEGATIVE); COLOR,URINE YELLOW; GLUCOSE, URINE NEGATIVE (NEGATIVE); KETONES,URINE TRACE mg/dL (NEGATIVE); LEUKOCYTE ESTERASE,URINE LARGE (NEGATIVE); NITRITE,URINE NEGATIVE (NEGATIVE); PROTEIN,URINE 100 mg/dL (NEGATIVE); URINE SPECIFIC GRAVITY 1.016
[2019-04-08] MEDS ORDERED: CEFTRIAXONE 1 GM/D5W RTU 1 GM/50 ML RTUPB IV ONE (15:37)
[2019-04-08] MEDS ORDERED: MORPHINE SULFATE 10 MG/ML INJ IV ONE ×2 (15:37→18:22)
--- NOTE | 2019-04-08 16:05 | RADIOLOGY REPORT (SQ) ---
EXAM DESCRIPTION: CT ABD/PELVIS NO ORAL OR IV COMPLETED DATE/TIME: 04/08/2019 3:51 pm REASON FOR STUDY: uti, bilat flank pain, renal stone COMPARISON: None. TECHNIQUE: CT scan of the abdomen and pelvis performed without intravenous or oral contrast. Images reviewed with lung, soft tissue, and bone windows. Reconstructed coronal and sagittal MPR images revi ewed. All images stored on PACS. All CT scanners at this facility use dose modulation, iterative reconstruction, and/or weight based d osing when appropriate to reduce radiation dose to as low as reasonably achievable (ALARA). [facility]: Dose Right [facility]: CareDose [facility]: Dose Right [facility]: Teradose 4D [facility]: Smart Fusion Coolant Systems RADIATION DOSE: CT Rad equipment meets quality standard of care and radiation dose reduction techniq ues were employed. CTDIvol: 5.5 mGy. DLP: 326 mGy-cm.mGy. LIMITATIONS: None. FINDINGS: LOWER CHEST: No significant findings. No nodules or infiltrates. NON-CONTRASTED LIVER, SPLEEN, ADRENALS: Evaluation limited by lack of IV contrast. No identified sign ificant masses. PANCREAS: No masses. No peripancreatic inflammatory changes. GALLBLADDER: Surgically absent. RIGHT KIDNEY AND URETER: No suspicious masses. Assessment limited by lack of IV contrast. No signif icant calcifications. No hydronephrosis or hydroureter. LEFT KIDNEY AND URETER: Enlarged, demonstrating mildly diminished, mildly heterogeneous attenuation w ith scant perinephric fat stranding. No suspicious masses. Assessment limited by lack of IV contrast . No significant calcifications. No hydronephrosis or hydroureter. AORTA AND RETROPERITONEUM: No aneurysm. No retroperitoneal masses or adenopathy. BOWEL AND PERITONEAL CAVITY: No obvious masses or inflammatory changes. No free fluid. APPENDIX: Surgically absent. PELVIS, BLADDER, AND ABDOMINAL WALL:No abnormal masses. No free fluid. Bladder normal. BONES: No significant findings. Incidental note is made of a left L5 Bertolotti segment with mild sc lerosis suggesting pseudoarthrosis. Mild chronic right sacroiliitis is likewise noted. OTHER: No other significant finding. IMPRESSION: No evidence of urolithiasis or obstructive uropathy. Enlarged left kidney with perineph roberto fat stranding a represent a developing pyelonephritis. COMMENT: Quality ID # [id number]: Final reports with documentation of one or more dose reduction techniques (e.g., Automated exposure control, adjustment of the mA and/or kV according to patient size, use of iterative reconstruction technique) TECHNICAL DOCUMENTATION: JOB ID: [id number] [employer]- All Rights Reserved Reading location - IP/workstation name: [email or web address]
--- NOTE | 2019-04-08 17:09 | RADIOLOGY REPORT (SQ) ---
EXAM DESCRIPTION: U/S NON OB PEL TV W/DOPPLER COMPLETED DATE/TIME: 04/08/2019 4:53 pm REASON FOR STUDY: retained products? 6wks ago, bleeding COMPARISON: None. TECHNIQUE: Dynamic and static grayscale images acquired of the pelvis via transvaginal approach and recorded on PACS. Additional selected color Doppler and spectral images recorded. LIMITATIONS: None. FINDINGS: UTERUS: Contour normal. No mass. ENDOMETRIAL STRIPE: No focal or generalized thickening. No masses. CERVIX: No nabothian cysts. RIGHT OVARY AND DOPPLER: Normal size. No worrisome masses. Normal arterial vascular flow without evid ence for torsion. LEFT OVARY AND DOPPLER: Nonvisualized. No adnexal mass. FREE FLUID: None noted. OTHER: No other significant finding. MEASUREMENTS: UTERUS: 4.5 x 5.2 x 8.6 cm ENDOMETRIAL STRIPE: 1 cm RIGHT OVARY: 2.8 x 1.8 x 2.2 IMPRESSION: No obvious findings of retained products of conception. Note that color Doppler flow in terrogation of the endometrium was not performed. TECHNICAL DOCUMENTATION: JOB ID: [id number]- All Rights Reserved Rev-01/07 Reading location - IP/workstation name: [email or web address]
--- NOTE | 2019-04-08 17:39 | ER Document Report ---
HPI - HPI Patient complains to provider of: bilat flank pain, fever, vomiting, frequency Time Seen by Provider: 04/08/19 13:24 Onset/Duration: Gradual, Waxing and waning Quality of pain: Sharp Severity: Moderate Pain Level: 4 Context: 33 Yr old female patient, with the listed pmh, here for bilateral flank pain and suprapubic abdominal pain x 2 days. She is also had a few episodes of nonbloody nonbilious vomiting and nonbloody diarrhea last 2 days. Also fever. No abdominal surgeries other than remote appendectomy, cholecystectomy and 3 C- sections. History of this before when she had a kidney infection. No history of ovarian cysts, fibroids, endometriosis, or renal stones. Normal bowel movements. No UTI symptoms other than some urinary frequency and hematuria. No URI symptoms. No recent antibiotics or steroids. No history of diabetes or asthma. No vaginal discharge/complaints/lesions or concerns for STDs and does not want a pelvic exam; however, she states she has had some vaginal spotting intermittently for the last 6 weeks since she had a miscarriage. 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 Denies acute blood loss symptoms or heavy bleeding or clots. No history of bleeding or clotting disorders. No ripping or tearing sensation. [id number] pain medicine not controlling her symptoms. Hasn't taken anything else for her symptoms. No excessive NSAID use, Tylenol use, or EtOH. No prior history of gallbladder disease, pancreatitis, ulcers, GI bleed, GERD, IBS, Crohn's, or UC. no change in color or caliber or stool. no blood thinners. no fall or trauma. no other associated sx. Similar symptoms previously: Yes Recently seen / treated by doctor: No - ROS Systems Reviewed and Negative: Yes All other systems reviewed and negative - To include 10 systems, unless mentioned in the hpi. - REPRODUCTIVE Reproductive: DENIES: : - DERM Skin Color: Normal, [place] Past Medical History - General Information source: Patient - Social History Smoking Status: Current Every Day Smoker Frequency of alcohol use: None Drug Abuse: Marijuana Family History: Reviewed & Not Pertinent Patient has suicidal ideation: No Patient has homicidal ideation: No Pulmonary Medical History: Reports: Hx Asthma Endocrine Medical History: Denies: Hx Diabetes Mellitus Type 1, Hx Diabetes Mellitus Type 2 Renal/ Medical History: Denies: Hx Kidney Stones, Hx Peritoneal Dialysis Musculoskeletal Medical History: Reports Hx Musculoskeletal Trauma Psychiatric Medical History: Reports: Hx Depression Past Surgical History: Reports: Hx Appendectomy, Hx Section - x3, Hx Cholecystectomy - Immunizations Immunizations up to date: Yes Vertical Provider Document - CONSTITUTIONAL Notes: >>>> PHYSICAL_EXAM: GENERAL_APPEARANCE: well_nourished, alert, cooperative, no_acute_distress, mild to moderate_obvious_discomfort. Pleasant, thin, young, white, female, who appears slightly older than stated age, speaking in full sentences, in no sign of resp distress, easily sitting up, mother at bedside VITALS: reviewed, see vital signs table. HEAD: normocephalic, atraumatic. no onofre signs. no raccoon eyes. EYES: PERRL, EOMI, (-)scleral icterus. NOSE: no_nasal_discharge. MOUTH: (-)decreased moisture. THROAT: no_tonsilar_inflammation/hypertrophy/exudate NECK: supple, no_neck_tenderness, full rom. full strength. no meningeal signs. BACK: no midline_back_tenderness. no step offs or deformities CHEST_WALL: no_chest_tenderness. LUNGS: no_wheezing, (-)accessory muscle use, good air exchange bilateral. HEART: normal_rate, normal_rhythm, ABDOMEN: normal_BS, soft, abdomen-diffuse, mildly tender suprapubically, (-)guarding, (-)rebound, no distension or peritoneal signs. neg murphys. neg mcburneys. Bilateral CVA tendernessleft greater than right, PELVIC: Deferred by patient RECTAL: deferred EXTREMITIES: strength 5/5 in all_extremities, good pulses in all_extremities, no_edema, no_swelling\tenderness. full rom. normal gait. good hand automobile technician. brisk cap refill. SKIN: warm, dry, good_color, no_rash. no grossly visible overlying skin changes to suggest trauma NEURO: motor_intact, sensory_intact. cranial nerves 2-12 intact, cerebellar fxn intact MENTAL_STATUS: normal_affect, speech_clear, oriented_X_3, responds_appropriately to questions. - INFECTION CONTROL TRAVEL OUTSIDE OF THE [place] IN LAST 30 DAYS: No Course - Re-evaluation Re-evalutation: 04/09/19 01:38 Pt here for bilateral flank pain suprapubic abdominal pain along with a few episodes of vomiting, diarrhea, frequency, hematuria, dysfunctional uterine bleeding, and fever since yesterday. History of kidney infection and it feels similar. Labs are notable for a white count of 17, normal kidney function, normal lactic, and UTI. Urine and blood cultures pending. CT abdomen and pelvis without IV contrast was done to r/o infected renal stone or other acute abd etiology and showed a left pyelonephrosis but was otherwise negative per radiology and reviewed by myself. a transvag us w/dop was done to r/o retained products and was neg per rad and reviewed by myself. pt had no concerns for stds and refused pelvic exam. She was given 2 L of fluids here. She did develop a fever here that resolved with Tylenol. She is tolerating p.o. She is actually well-appearing. Nontoxic. She is pain controlled. Her tachycardia resolved. She was given Rocephin 1g IVPB here. Will discharge her with Keflex and Zofran. Advised her to have a low threshold for any worsening symptoms to return to the ER. tylenol or motrin for any pain. drink plenty of fluids. advised sx care. She did not want admission at this time. advised to f/u with pcp/urology/obgyn in 1- 2 days. return for any worsening symptoms. vss. well appearing. satting well on ra. neurononfocal. pt understands and agrees to plan. On reexam, pt improved with tx listed. remained stable. nontoxic. well appearing. pain controlled. tolerating po. requesting to go home. serial abd exams remain benign. Documentation achieved through voice recording which my lead to some occasional accidental typographical errors. Extensive efforts have been made to proof read documentation to make sure these are the least as possible. Category Date Time Status Saline Lock (ED) NOW Care 04/08/19 13:26 Active Vital Signs (ED) STAT Care 04/08/19 17:33 Active Vital Signs (ED) STAT Care 04/08/19 18:[address] ABD/PELVIS NO ORAL OR IV [CT] Stat Exams 04/08/19 15:28 Completed TRANSVAGINAL [U/S NON OB PEL TV W/DOPPLER] [US] Stat Exams 04/08/19 15:35 Completed BLOOD CULTURE [MC] Stat Lab 04/08/19 17:43 Received CBC WITH DIFF [HEME] Stat Lab 04/08/19 13:31 Completed COMPREHENSIVE METABOLIC PANEL [CHEM] Stat Lab 04/08/19 13:31 Completed HCG-QUAL, SERUM [CHEM] Stat Lab 04/08/19 13:31 Completed LACTIC ACID SEPSIS [CHEM] Stat Lab 04/08/19 18:12 Completed LIPASE [CHEM] Stat Lab 04/08/19 13:31 Completed URINALYSIS [URIN] Stat Lab 04/08/19 13:31 Completed URINE CULTURE [MC] Stat Lab 04/08/19 13:31 Received Acetaminophen [Tylenol 325 mg Tablet] Med 04/08/19 17:42 Discontinued 975 mg PO NOW ONE Ceftriaxone 1 gm/D5w RTU [Rocephin RTU 1 gm/D5w 50 ml Med 04/08/19 15:37 Discontinued Premix] 1 gm in 50 ml IV NOW Morphine Sulfate [Morphine 10 mg/ml Inj] Med 04/08/19 15:37 Discontinued 4 mg IV NOW ONE Normal Saline 1000 ml [NaCl 0.9% 1000 ml IV Soln] 1,000 Med 04/08/19 13:27 Discontinued ml IV BOLUS Normal Saline 1000 ml [NaCl 0.9% 1000 ml IV Soln] 1,000 Med 04/08/19 17:43 Discontinued ml IV BOLUS Ondansetron HCl/Pf [Zofran Inj/Pf 4 mg/2 ml Sdv] Med 04/08/19 13:26 Discontinued 4 mg IV NOW ONE Ondansetron HCl/Pf [Zofran Inj/Pf 4 mg/2 ml Sdv] Med 04/08/19 15:36 Discontinued 4 mg IV NOW ONE - Vital Signs Vital signs: Temp Pulse Resp BP Pulse Ox 99.8 F 120 H 16 115/79 99 04/08/19 13:19 04/08/19 13:19 04/08/19 13:19 04/08/19 13:19 04/08/19 13:19 Temp Pulse Pulse Resp BP BP Pulse Ox 04/08/19 18:56 99.7 F 103 H 17 110/49 L 98 04/08/19 17:45 102.8 F H 100 18 111/61 100 04/08/19 13:19 99.8 F 120 H 16 115/79 99 - Laboratory Result Diagrams: 04/08/19 13:31 04/08/19 13:31 Laboratory results interpreted by me: Labs- Entire Visit 04/08/19 04/08/19 04/08/19 13:31 13:31 13:31 WBC 17.3 H RBC 5.00 Hgb 14.4 Hct 42.5 MCV 85 MCH 28.9 MCHC 34.0 RDW 14.2 H Plt Count 236 Seg Neutrophils % 87.9 H Lymphocytes % 6.7 L Monocytes % 5.1 Eosinophils % 0.0 Basophils % 0.3 Absolute Neutrophils 15.2 H Absolute Lymphocytes 1.2 Absolute Monocytes 0.9 Absolute Eosinophils 0.0 Absolute Basophils 0.1 Sodium 137.2 Potassium 4.4 Chloride 101 Carbon Dioxide 24 Anion Gap 12 BUN 10 Creatinine 0.86 Est GFR ( Amer) > 60 Est GFR (Non-Af Amer) > 60 Glucose 130 H Lactic Acid Calcium 9.6 Total Bilirubin 0.7 Direct Bilirubin 0.3 Neonat Total Bilirubin Not Reportable Neonat Direct Bilirubin Not Reportable Neonat Indirect Bili Not Reportable AST 32 ALT 27 Alkaline Phosphatase 102 Total Protein 7.8 Albumin 4.4 Lipase 50.5 Serum HCG, Qual NEGATIVE Urine Color Urine Appearance Urine pH Ur Specific [place] Urine Protein Urine Glucose (UA) Urine Ketones Urine Blood Urine Nitrite Urine Bilirubin Urine Urobilinogen Ur Leukocyte Esterase Urine WBC (Auto) Urine RBC (Auto) Urine Bacteria (Auto) Squamous Epi Cells Auto U Non-Squamous Epis Auto Urine Mucus (Auto) Urine Ascorbic Acid 04/08/19 04/08/19 13:31 18:12 WBC RBC Hgb Hct MCV MCH MCHC RDW Plt Count Seg Neutrophils % Lymphocytes % Monocytes % Eosinophils % Basophils % Absolute Neutrophils Absolute Lymphocytes Absolute Monocytes Absolute Eosinophils Absolute Basophils Sodium Potassium Chloride Carbon Dioxide Anion Gap BUN Creatinine Est GFR ( Amer) Est GFR (Non-Af Amer) Glucose Lactic Acid 1.1 Calcium Total Bilirubin Direct Bilirubin Neonat Total Bilirubin Neonat Direct Bilirubin Neonat Indirect Bili AST ALT Alkaline Phosphatase Total Protein Albumin Lipase Serum HCG, Qual Urine Color YELLOW Urine Appearance CLOUDY Urine pH 6.0 Ur Specific [place] 1.016 Urine Protein 100 H Urine Glucose (UA) NEGATIVE Urine Ketones TRACE H Urine Blood LARGE H Urine Nitrite NEGATIVE Urine Bilirubin NEGATIVE Urine Urobilinogen 2.0 H Ur Leukocyte Esterase LARGE H Urine WBC (Auto) 156 Urine RBC (Auto) 16 Urine Bacteria (Auto) 1+ Squamous Epi Cells Auto 8 U Non-Squamous Epis Auto 1 Urine Mucus (Auto) OCC Urine Ascorbic Acid NEGATIVE - Diagnostic Test Radiology reviewed: Image reviewed, Reports reviewed Radiology results interpreted by me: Abdomen/Pelvis CT 04/08/19 15:28 IMPRESSION: No evidence of urolithiasis or obstructive uropathy. Enlarged left kidney with perinephric fat stranding a represent a developing pyelonephritis. Transvaginal US 04/08/19 15:35 IMPRESSION: No obvious findings of retained products of conception. Note that color Doppler flow interrogation of the endometrium was not performed. Discharge - Discharge Clinical Impression: Pyelonephritis, Dysfunctional uterine bleeding Leukocytosis Qualifiers: Leukocytosis type: unspecified Qualified Code(s): D72.829 - Elevated white blood cell count, unspecified Vomiting Qualifiers: Vomiting type: unspecified Vomiting Intractability: non-intractable Nausea presence: with nausea Qualified Code(s): R11.2 - Nausea with vomiting, unspec ified Condition: Good Disposition: HOME, SELF-CARE Instructions: Pyelonephritis ([facility]), Vomiting ([facility]) Additional Instructions: Follow-up with PCP/obgyn/urology in 1 to 2 days. Return for any worsening symptoms. tylenol or motrin as needed for any pain. drink plenty of fluids. take the medications as prescribed. we will call you with any abnormal results that require change in plan of care. have a low threshold for any worsening symptoms and return to the er. Prescriptions: Ondansetron HCl [Zofran 4 mg Tablet] 1 tab PO Q8HP PRN #14 tablet PRN Reason: For Nausea/Vomiting Cephalexin Monohydrate [Keflex 500 mg Capsule] 500 mg PO Q6H 10 Days #40 capsule Forms: Return to Work Referrals: TIFF MORLEY CNM [NO LOCAL MD] - Follow up as needed
[2019-04-08] MEDS ORDERED: ACETAMINOPHEN 325 MG TABLET PO ONE (17:42)
[2019-04-08] MEDS ORDERED: METHYLPREDNISOLONE INJ 125 MG/2 ML SDV IV ONE (18:22)
[2019-04-08 19:03] VITALS: BP 110/49
== END 2019-04-08 19:05 | disposition home or self-care (01) ==
LOC: ER 13:15
DX: N12 Tubulo-interstitial nephritis, not specified as acute or chronic (principal); R31.9 Hematuria, unspecified; N93.8 Other specified abnormal uterine and vaginal bleeding; D72.829 Elevated white blood cell count, unspecified; R11.2 Nausea with vomiting, unspecified; R19.7 Diarrhea, unspecified; R50.9 Fever, unspecified
CPT/HCPCS: 96376; 99284; 96361; 96375; 96365; 36415; 87040; 87086; 83690; 84703; 85025; 87088; 80053; 81001; 87186; 83605; 76830; 93976; 74176; J3490; J1885; J2270; J2405; J7030; J0696

== ENCOUNTER 2019-04-13 07:29 | Day surgery (SDC) | payer MEDICAID ==
[2019-04-13 07:59] LABS: APPEARANCE,URINE CLEAR; BILIRUBIN,URINE NEGATIVE (NEGATIVE); COLOR,URINE YELLOW; GLUCOSE, URINE NEGATIVE (NEGATIVE); KETONES,URINE NEGATIVE (NEGATIVE); LEUKOCYTE ESTERASE,URINE TRACE (NEGATIVE); NITRITE,URINE NEGATIVE (NEGATIVE); PROTEIN,URINE NEGATIVE (NEGATIVE); URINE SPECIFIC GRAVITY 1.018; UROBILINOGEN,URINE NEGATIVE mg/dL (<2.0)
[2019-04-13] MEDS ORDERED: KETOROLAC TROMETHAMINE 60 MG/2 ML SDV ONE (08:06)
[2019-04-13] MEDS ORDERED: MIDAZOLAM 2 MG/2 ML INJ ONE (08:06)
[2019-04-13] MEDS ORDERED: FENTANYL CITRATE INJ/PF 100 MCG/2 ML AMPUL ONE (08:06)
[2019-04-13] MEDS ORDERED: DEXAMETHASONE SOD PHOSPHATE INJ 4 MG/1 ML VIAL ONE (08:06)
[2019-04-13] MEDS ORDERED: ONDANSETRON HCL INJ/PF 4 MG/2 ML SDV ONE (08:06)
[2019-04-13] MEDS ORDERED: PROPOFOL INJ 200 MG/20 ML VIAL IV ONE (08:07)
[2019-04-13] MEDS ORDERED: ONDANSETRON HCL INJ/PF 4 MG/2 ML SDV IV PRN (08:11)
[2019-04-13] MEDS ORDERED: FENTANYL CITRATE INJ/PF 100 MCG/2 ML AMPUL IV PRN ×3 (08:11)
[2019-04-13] MEDS ORDERED: MEPERIDINE HCL/PF INJ 25 MG/1 ML DISP.SYRIN IV PRN (08:11)
[2019-04-13] MEDS ORDERED: PROMETHAZINE HCL INJ 25 MG/1 ML VIAL IV PRN (08:11)
[2019-04-13] MEDS ORDERED: MORPHINE SULFATE 10 MG/ML INJ IV PRN (08:11)
[2019-04-13] MEDS ORDERED: OXYCODONE-ACETAMINOPHEN 5-325 MG TABLET PO PRN ×2 (08:11)
[2019-04-13] MEDS ORDERED: DIPHENHYDRAMINE HCL 50 MG/ML VIAL IV PRN (08:11)
[2019-04-13 08:19] LABS: HEMOGLOBIN 11.4 g/dL (12.0-15.5); MEAN CORPUSCULAR HEMOGLOBIN 28.6 pg (27.0-33.4); MEAN CORPUSCULAR HGB CONC 33.5 g/dL (32.0-36.0); MEAN CORPUSCULAR VOLUME 86 fl (80-97); PLATELET COUNT 282 10^3/uL (150-450); RED BLOOD COUNT 3.98 10^6/uL (3.72-5.28); RED CELL DISTRIBUTION WIDTH 14.2 % (11.5-14.0); WHITE BLOOD COUNT 6.2 10^3/uL (4.0-10.5)
[2019-04-13] MEDS: FENTANYL CITRATE INJ/PF 100 MCG/2 ML AMPUL ONE ×2 (09:04→09:09)
--- NOTE | 2019-04-13 09:10 | OPERATIVE REPORT E ---
Operative Report NAME: BERNARD PARNELL : 1985 AGE: 33Y DATE OF SURGERY: 04/13/2019 ROOM: PREOPERATIVE DIAGNOSIS: MISSED . POSTOPERATIVE DIAGNOSIS: MISSED . OPERATION: Suction D and C. SURGEON: Marry HICKS M.D. ANESTHESIA: General. ESTIMATED BLOOD LOSS: Negligible. TISSUE REMOVED OR ALTERED: Minimal tissue was removed. PROCEDURE: The patient was placed in a dorsal lithotomy position, prepped and draped in the usual sterile fashion. A speculum was placed. The cervix was grasped with a single-tooth tenaculum. The uterus sounded to a depth of 9 cm. The os was sufficiently opened enough to admit a #8 suction catheter. Suction curettage was performed with a minimal amount of tissue being recovered. Sharp curettage was then done followed by suction curettage. The single-tooth tenaculum was removed and the procedure terminated. The patient tolerated it well and was taken to recovery in good condition. DICTATING PHYSICIAN: Marry HICKS M.D. [id number] Y#: [id number] ID: [id number] JOB#: [id number] ACCT: [id number] cc:Marry HICKS M.D. >
[2019-04-13] MEDS ORDERED: DIPHENHYDRAMINE HCL 50 MG/ML VIAL ONE (09:21)
[2019-04-13] MEDS ORDERED: ONDANSETRON HCL 8 MG TABLET PO PRN (09:32)
[2019-04-13] MEDS ORDERED: IBUPROFEN 800 MG TABLET PO SCH (10:00)
[2019-04-13 11:58] VITALS: BP 98/52
== END 2019-04-13 10:35 | disposition home or self-care (01) ==
LOC: OROUT 07:29
PROVIDERS: ATTEND Obstetrics & Gynecology Gynecology
DX: O02.1 Missed abortion (principal); F17.210 Nicotine dependence, cigarettes, uncomplicated; J45.909 Unspecified asthma, uncomplicated; Z32.01 Encounter for pregnancy test, result positive
CPT/HCPCS: 36415; 85027; 81025; 81001; 01965; 59820; J2250; J1100; J1200; J1885; J3010; J2405; J2704; 1965

== ENCOUNTER 2019-11-26 20:07 | Emergency (ER) | payer MEDICAID ==
--- NOTE | 2019-11-26 20:18 | ER Document Report ---
HPI - HPI Time Seen by Provider: 11/26/19 20:13 Context: Patient is a 34-year-old female who presents emergency department with a chief complaint of tooth pain to tooth #31 and 2. Patient states that she has had tooth problem for "a while," and it has been bothering her more for the past couple of days. Denies any fevers, body aches, and chills. Patient states that she has not been to the dentist in a while. Denies any difficulty breathing or shortness of breath. Denies any throat pain. Denies any past medical history. - ROS Systems Reviewed and Negative: Yes All other systems reviewed and negative - CONSTITUTIONAL Constitutional: DENIES: Fever, Chills - EENT EENT: DENIES: Sore Throat, Ear Pain, Nasal Drainage-Clear, Nasal Drainage- Purulent, Congestion, Eye problems Notes: Tooth pain. See HPI. - NEURO Neurology: DENIES: Headache, Weakness, Vision blurred, Dizzinesss / Vertigo - CARDIOVASCULAR Cardiovascular: DENIES: Chest pain - RESPIRATORY Respiratory: DENIES: Trouble Breathing, Coughing - REPRODUCTIVE Reproductive: DENIES: : - MUSCULOSKELETAL Musculoskeletal: DENIES: Swelling - DERM Skin Color: Normal Skin Problems: None Past Medical History - General Information source: Patient - Social History Smoking Status: Current Every Day Smoker Family History: Reviewed & Not Pertinent - Past Medical History Cardiac Medical History: Denies: Hx Coronary Artery Disease, Hx Heart Attack, Hx Hypertension Pulmonary Medical History: Reports: Hx Asthma Denies: Hx Bronchitis, Hx COPD, Hx Pneumonia Neurological Medical History: Denies: Hx Cerebrovascular Accident, Hx Seizures Endocrine Medical History: Denies: Hx Diabetes Mellitus Type 1, Hx Diabetes Mellitus Type 2 Renal/ Medical History: Denies: Hx Kidney Stones, Hx Peritoneal Dialysis Musculoskeletal Medical History: Denies Hx Arthritis, Reports Hx Musculoskeletal Trauma Psychiatric Medical History: Reports: Hx Depression Past Surgical History: Reports: Hx Appendectomy, Hx Section - x3, Hx Cholecystectomy - Immunizations Immunizations up to date: Yes Vertical Provider Document - CONSTITUTIONAL Agree With Documented VS: Yes Exam Limitations: No Limitations General Appearance: No Apparent Distress - INFECTION CONTROL TRAVEL OUTSIDE OF THE [place] IN LAST 30 DAYS: No - HEENT HEENT: Atraumatic, Normocephalic, PERRLA Mouth Diagram: 1 - Dental carry 2 - Dental carry - NECK Neck: Normal Inspection, Supple - RESPIRATORY Respiratory: Breath Sounds Normal, No Respiratory Distress - CARDIOVASCULAR Cardiovascular: Regular Rate Pulses: Normal: Radial - MUSCULOSKELETAL/EXTREMETIES Musculoskeletal/Extremeties: FROM - NEURO Level of Consciousness: Awake, Alert, Appropriate Motor/Sensory: No Motor Deficit, No Sensory Deficit - DERM Integumentary: Warm, Dry, No Rash Course - Re-evaluation Re-evalutation: 11/26/19 20:20 Patient's physical exam and history is most consistent with a infected tooth. Patient is able to swallow, no facial swelling noted, airway is patent, vital signs are normal. I do not suspect Tam's angina, peritonsilar abscess, or airway obstruction. The patient will be started on oral antibiotics. I have given the patient education on their antibiotics. Patient was given instructions to follow-up with a dentist this week. Return precautions were given. Verbal discharge instructions were given. Patient verbalized understanding. Patient is stable for discharge. Discharge - Discharge Clinical Impression: Tooth pain Condition: Stable Disposition: HOME, SELF-CARE Instructions: [facility], Penicillin V K ([facility]), Toothache ([facility]) Additional Instructions: You have been seen in the emergency department for a toothache. You may take ibuprofen 600 mg and Tylenol 1000 mg every 6 hours as needed for the pain. You have also been prescribed antibiotics. Please take the antibiotics as prescribed, even if you start to feel better. If you develop a fever greater than 100.4 F, or have any symptoms that are worrisome to you, please return to the emergency department. Please follow-up with a dentist this week in regards to your visit. Prescriptions: Penicillin V Potassium [Penicillin Vk 500 mg Tablet] 500 mg PO TID 7 Days #21 tablet Referrals: [facility] [Provider Group] - Follow up in 1 week
[2019-11-26 20:30] VITALS: BP 114/65
== END 2019-11-26 20:30 | disposition home or self-care (01) ==
LOC: ER 20:07
DX: K08.9 Disorder of teeth and supporting structures, unspecified (principal); F17.200 Nicotine dependence, unspecified, uncomplicated; Z90.49 Acquired absence of other specified parts of digestive tract
CPT/HCPCS: 99282